=== PATIENT | female | born 2000 | race Caucasian/White ===

== ENCOUNTER 2018-08-28 16:37 | Emergency (ER) | payer OTHER ==
[~2018-08-28] VITALS: Ht 165.1 cm; Wt 66.3 kg
[2018-08-28 17:25] VITALS: BP 117/72
--- NOTE | 2018-08-28 18:05 | NUR ---
17YO BIB FRIEND. SEND FROM [employer] F[facility] [employer] AT 0830 WITH C/O RT SIDED HEAD ACHE 01/31, ABRASIONS ON THE RT CHEST/SHOULDER/KNEE, DIFFICULTY CONCENTRATING AT SCHOOL; DENIES LOC, DIZZINESS, N/V/D. ER MADE AWARE. HX; DENIES RX; DENIES
--- NOTE | 2018-08-28 18:07 | NUR ---
Patient being evaluated by physician at bedside.
--- NOTE | 2018-08-28 18:10 | NUR ---
PT TAKEN TO CT AND XRAY VIA WHEELCHAIR
--- NOTE | 2018-08-28 18:42 | NUR ---
PT RETURNED FROM CT
--- NOTE | 2018-08-28 19:15 | NUR ---
PT SITTING UP IN BED, VITALS STABLE.
[2018-08-28 20:20] VITALS: BP 117/72
--- NOTE | 2018-08-28 20:20 | NUR ---
Patient discharged with v/s stable. Written and verbal after care instructions given and explained. Patient verbalized understanding. Ambulatory with steady gait. All questions addressed prior to discharge. Advised to follow up with PMD. MEDICATION PRESCRIPTIONS TYLENOL AND [id number] WAS GIVEN.
== END 2018-08-28 20:20 | disposition home or self-care (01) ==
LOC: MED 16:37 → EDBD 16:37 → MED 20:20
DX: S09.90XA Unspecified injury of head, initial encounter (principal); S20.219A Contusion of unspecified front wall of thorax, initial encounter; S16.1XXA Strain of muscle, fascia and tendon at neck level, initial encounter; V00.131A Fall from skateboard, initial encounter; Y93.89 Activity, other specified; Y92.89 Other specified places as the place of occurrence of the external cause; Y99.8 Other external cause status
CPT/HCPCS: 70450; 71250; 72125; 81002; 81025; 99284